=== PATIENT | female | born 1980 | race Two or more races ===

== ENCOUNTER 2020-04-24 02:46 | Emergency (ER) | payer OTHER ==
[~2020-04-24] VITALS: Ht 160 cm; Wt 63.0 kg
[2020-04-24] MEDS ORDERED: BACTRIM 400-801 EACH (02:52)
== END 2020-04-24 10:22 | disposition home or self-care (01) ==
LOC: ER 02:46
DX: N80.8 Other endometriosis (principal); R10.31 Right lower quadrant pain; R10.2 Pelvic and perineal pain